=== PATIENT | male | born 1955 | race Caucasian/White ===

== ENCOUNTER → 2016-05-22 | Outpatient (CLI) | payer BC, OTHER ==
[~2016-05-22] MED LIST: ACID1TAB5 PO; CENTTAB PO; CIPR500T89 PO; DOCU10CA PO; FLAG500T PO; GLUCTAB6 PO; HYDR-3713 PO; LEVA500T PO; LORT5TAB PO; MOME50SP; OMEG100011 PO; OMEP20CA3 PO; TYLE325T5 PO; VITA1TAB7 PO; ZYRT10TA2 PO
[2016-05-22 09:09] LABS: BASO % 0.3 % (0.0-1.0); EOS # 0.2 K/mm3 (0.0-0.50); LARGE UNSTAINED CELL # 0.1 K/mm3 (0.0-0.4); LARGE UNSTAINED CELL % 1.9 % (0.0-4.0); MEAN CORPUSCULAR HEMOGLOBIN 32.3 pg (27.0-33.0); MEAN CORPUSCULAR HGB CONC 34.8 g/dl (32.0-36.5); MEAN CORPUSCULAR VOLUME 92.8 fl (80.0-96.0); MONO # 0.4 K/mm3 (0.0-0.8); MONO % 7.6 % (0.0-5.0); NEUTROPHILS # 3.2 K/mm3 (1.8-7.7); NEUTROPHILS % 55.2 % (36.0-66.0); PLATELET COUNT, AUTOMATED 191 k/mm3 (150-450); RED CELL DISTRIBUTION WIDTH 13.1 % (11.5-14.5); WHITE BLOOD COUNT 5.8 K/mm3 (4.0-10.0)
[2016-05-22 09:46] LABS: ANION GAP 7 MEQ/L (8-16); BLOOD UREA NITROGEN 16 MG/DL (7-18); CALCIUM LEVEL 8.8 MG/DL (8.8-10.2); CARBON DIOXIDE LEVEL 26 MEQ/L (21-32); CHLORIDE LEVEL 107 MEQ/L (98-107); CREATININE FOR GFR 1.04 MG/DL (0.70-1.30); GLOMERULAR FILTRATION RATE > 60.0 (>49); GLUCOSE, FASTING 105 MG/DL (80-110); POTASSIUM SERUM 4.1 MEQ/L (3.5-5.1); SODIUM LEVEL 140 MEQ/L (136-145)
--- NOTE | 2016-05-22 13:43 | ECGEPIP ---
Stationary ECG Study [facility] Test Date: 2016-05-22 Pat Name: CHRISTINA KLEIN Department: Room: - Gender: M Cdl A Driver: RF : 1955 Requested By: Eb Webster Order Number: [id number] Reading MD: Arslan Payne Measurements Intervals [place] Rate: 61 P: 48 [place]: 187 QRS: -25 QRSD: 105 T: 1 QT: 420 QTc: 426 Interpretive Statements SINUS RHYTHM Leftward axis. No significant change compared with 06/12/2014. Electronically Signed On 05-22-2016 13:43:03 EDT by Arslan Payne
== END ==
LOC: M LAB 08:15
PROVIDERS: ATTEND Podiatrist
DX: Z01.818 Encounter for other preprocedural examination (principal); G57.61 Lesion of plantar nerve, right lower limb

== ENCOUNTER → 2016-06-14 | Day surgery (SDC) | payer BC, OTHER ==
[~2016-06-14] VITALS: Ht 177.8 cm; Wt 96.2 kg
[~2016-06-14] MED LIST changes: +BACITRACIN PWD 50,000 UNITS VIAL As Ordered ONE; +BUPIVACAINE HCL 0.5% 30 ML VIAL As Ordered ONE; +LIDOCAINE 2% MDV 20 ML VIAL As Ordered ONE; +LR 1,000 ML IV SCH; +MIDAZOLAM INJ 2 MG/2 ML VIAL (J2250) As Ordered ONE; +NEOSPORIN GU IRRIG 20 ML VIAL As Ordered ONE; +ONDANSETRON 4MG/2ML VIAL (J2405) As Ordered ONE; +PROPOFOL 500 MG/50 ML VIAL As Ordered ONE; +VANCOMYCIN HCL 1,000 MG, VIAL MATE ADAPTER 1 EACH in D5W 250 ML IV ONE; +dexameTHASONE 4 MG/ML 1ML VIAL (J1100) As Ordered ONE; +fentaNYL 100 MCG/2 ML INJECTION (J3010) As Ordered ONE
[2016-06-14 09:40] VITALS: BP 117/67
--- NOTE | 2016-06-14 10:56 | RO ---
DATE OF PROCEDURE: 06/14/2016 PREPROCEDURE DIAGNOSIS: Neuroma third intermetatarsal space. POSTPROCEDURE DIAGNOSIS: Neuroma third intermetatarsal space. PROCEDURE: Excision of neuroma third intermetatarsal space right foot. SURGEON: Dr. Eb Webster DPM CLAMP OPERATOR: None. ANESTHESIA: Local MAC. IRRIGATION: Dilute bacitracin, neomycin and polymyxin B solution. HEMOSTASIS: Ankle pneumatic tourniquet at 200 mmHg for 12 minutes. DESCRIPTION OF OPERATION: On 06/14/2016, this 60-year-old white male was taken from his hospital room to the operating room and placed on the operating room table in the supine position. Following the induction of IV sedation and local and regional anesthesia, the right lower extremity was prepped and draped in the usual aseptic manner. Attention was directed to the patient's right foot. The ankle pneumatic tourniquet was rapidly inflated and the following procedure was performed: EXCISION OF NEUROMA THIRD INTERMETATARSAL SPACE RIGHT FOOT: Attention was directed to the third intermetatarsal space where an incision was made measuring approximately 4 cm ending in the third interdigital sulcus. Incision was deepened through the subcutaneous tissues and all coursing venous tributaries were identified, underscored, clamped, cut, ligated and electrocoagulated as necessary. Dissection was carried down to the level of the deep transverse intermetatarsal ligament which was transected. A large neuroma was seen in the third intermetatarsal space. It was traced into the common digital branches and transected on the third and fourth toes, then it was traced in a proximal direction to the distal one-third of the shaft of the third metatarsal transected at the level of the interdigital muscles. This was extirpated from the wound. The wound was flushed with copious amounts of dilute bacitracin, neomycin and polymyxin B solution. Subcutaneous tissues were coapted and maintained with #4-0 Monocryl in a simple interrupted type fashion. Skin incisions were coapted and maintained utilizing #5-0 Monocryl in a continuous subcuticular fashion. This was additionally reinforced with Steri-Strips. Attention was directed toward bandaging where a sterile compression bandage was applied consisting of Adaptic, 4x4, 4x4 splint, Kaitlin, Kerlix and Coban. The ankle pneumatic tourniquet was then rapidly deflated and instantaneous capillary filling time was noted to digits of one through five of the patient's right foot. The patient having apparently tolerated the surgical procedure well was taken from the operating room (OR) to the recovery room with vital signs stable and the patient afebrile for further monitoring by the anesthesia department. All surgical specimens removed during the operative procedure were sent to pathology for gross and microscopic examination. Postoperative instructions given upon discharge.
== END ==
LOC: M SDC 05:54
PROVIDERS: ATTEND Podiatrist
DX: G57.61 Lesion of plantar nerve, right lower limb (principal); M79.671 Pain in right foot; K21.9 Gastro-esophageal reflux disease without esophagitis; R06.02 Shortness of breath; M26.69 Other specified disorders of temporomandibular joint; R06.83 Snoring; Z88.0 Allergy status to penicillin; Z79.899 Other long term (current) drug therapy
CPT/HCPCS: 28080; 88304; J1100; J2250; J2405; J3010; J3370

== ENCOUNTER → 2018-06-19 | Outpatient (REF) | payer OTHER ==
[~2018-06-19] MED LIST changes: -BACITRACIN PWD 50,000 UNITS VIAL As Ordered ONE; -BUPIVACAINE HCL 0.5% 30 ML VIAL As Ordered ONE; +CIPR-249 PO; -CIPR500T89 PO; +LEVA1TAB2 PO; -LEVA500T PO; -LIDOCAINE 2% MDV 20 ML VIAL As Ordered ONE; -LR 1,000 ML IV SCH; -MIDAZOLAM INJ 2 MG/2 ML VIAL (J2250) As Ordered ONE; -NEOSPORIN GU IRRIG 20 ML VIAL As Ordered ONE; -ONDANSETRON 4MG/2ML VIAL (J2405) As Ordered ONE; -PROPOFOL 500 MG/50 ML VIAL As Ordered ONE; -VANCOMYCIN HCL 1,000 MG, VIAL MATE ADAPTER 1 EACH in D5W 250 ML IV ONE; +ZYRT10CA5 PO; -ZYRT10TA2 PO; -dexameTHASONE 4 MG/ML 1ML VIAL (J1100) As Ordered ONE; -fentaNYL 100 MCG/2 ML INJECTION (J3010) As Ordered ONE
== END ==
LOC: M LAB REF 12:13
PROVIDERS: ATTEND Physician Assistant
DX: R19.4 Change in bowel habit (principal)

== ENCOUNTER → 2018-11-04 | Outpatient (CLI) | payer BC, OTHER ==
[~2018-11-04] MED LIST changes: +CETI10TA8 PO; +ERYT1OIN26 OS; +MULTCAP PO; +OMEP1CAP73 PO; -OMEP20CA3 PO
--- NOTE | 2018-11-04 20:00 | REP ---
Lumbar spine five views: Comparison is N abdomen and pelvis CT dated 06/13/2014. Vertebral body heights, interspacing alignment are normal and unchanged. There is a large bridging osteophyte along the anterolateral margin of the L1-L2. This is unchanged from the comparison study and may represent degenerative disc disease at this level. There is no spondylolysis or spondylolisthesis. 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 The sacroiliac articulations are unremarkable. Large bridging osteophyte along the anterolateral margin of L1-2 on the right, unchanged from the comparison study. Otherwise, negative lumbar spine. Electronically Signed by Fili Amaral MD 11/04/2018 07:52 P
== END ==
LOC: M RAD 09:44
PROVIDERS: ATTEND Family Medicine
DX: M51.37 Other intervertebral disc degeneration, lumbosacral region (principal); M25.78 Osteophyte, vertebrae

== ENCOUNTER 2018-11-12 11:03 | Day surgery (SDC) | payer BC, OTHER ==
[~2018-11-12] VITALS: Ht 177.8 cm; Wt 88.0 kg
[~2018-11-12 11:03] MED LIST changes: -ERYT1OIN26 OS; +LIDOCAINE 2% INJ 100 MG/5 ML SDV (FOR ANES.) As Ordered ONE; -OMEP1CAP73 PO; +OMEP20CA4 PO; +PROPOFOL 200 MG/20 ML VIAL As Ordered ONE; +fentaNYL 100 MCG/2 ML INJECTION (J3010) As Ordered ONE
[2018-11-12] MEDS: NS 1,000 ML IV ONE (11:30)
[2018-11-12] MEDS ORDERED: PROPOFOL 200 MG/20 ML VIAL As Ordered ONE (12:24)
--- NOTE | 2018-11-12 13:05 | ROOR ---
Patient Name: Vishnu Berry Procedure Date: 11/12/2018 11:53 AM Date of : 1955 Age: 63 Room: [facility] Gender: Male Note Status: Finalized Procedure: Upper GI endoscopy Indications: Suspected gastro-esophageal reflux disease Providers: Juanito Sinclair MD Referring MD: RACHELLE Medina Requesting Provider: Medicines: Monitored Anesthesia Care Complications: No immediate complications. Procedure: Pre-Anesthesia Assessment: - Prior to the procedure, a History and Physical was performed, and patient medications and allergies were reviewed. The patient is competent. The risks and benefits of the procedure and the sedation options and risks were discussed with the patient. All questions were answered and informed consent was obtained. Patient identification and proposed procedure were verified by the physician, the nurse and the anesthesiologist in the procedure room. Mental Status Examination: alert and oriented. Airway Examination: normal oropharyngeal airway and neck mobility. Respiratory Examination: clear to auscultation. CV Examination: normal. Prophylactic Antibiotics: The patient does not require prophylactic antibiotics. Prior Anticoagulants: The patient has taken no previous anticoagulant or antiplatelet agents. ASA Grade Assessment: II - A patient with mild systemic disease. After reviewing the risks and benefits, the patient was deemed in satisfactory condition to undergo the procedure. The anesthesia plan was to use monitored anesthesia care (MAC). Immediately prior to administration of medications, the patient was re-assessed for adequacy to receive sedatives. The heart rate, respiratory rate, oxygen saturations, blood pressure, adequacy of pulmonary ventilation, and response to care were monitored throughout the procedure. The physical status of the patient was re-assessed after the procedure. The Endoscope was introduced through the mouth, and advanced to the second part of duodenum. The upper GI endoscopy was accomplished without difficulty. The patient tolerated the procedure well. Findings: LA Grade A (one or more mucosal breaks less than 5 mm, not extending between tops of 2 mucosal folds) esophagitis with no bleeding was found in the distal esophagus. Biopsies were taken with a cold forceps for histology. Verification of patient identification for the specimen was done by the physician and nurse using the patient's name, date and medical record number. Estimated blood loss was minimal. Multiple 10 to 20 mm sessile fundic gland polyps with no bleeding and no stigmata of recent bleeding were found in the gastric fundus, in the gastric body and in the gastric antrum. The polyp was removed with a cold snare. (few large polyps removed completely) using a Huerta net. Two hemostatic clips were successfully placed. Scattered mild inflammation characterized by erythema and granularity was found in the gastric antrum. Biopsies were taken with a cold forceps for Helicobacter pylori testing. The duodenal bulb and second portion of the duodenum were normal. Impression: - LA Grade A reflux esophagitis. Rule out Robles's esophagus. Biopsied. - Multiple fundic gland polyps. Clips were placed. - Gastritis. Biopsied. - Normal duodenal bulb and second portion of the duodenum. Recommendation: - Patient has a contact number available for emergencies. The signs and symptoms of potential delayed complications were discussed with the patient. Return to normal activities tomorrow. Written discharge instructions were provided to the patient. - High fiber diet. - Continue present medications. - Await pathology results. - Follow an antireflux regimen. - Telephone GI clinic for pathology results in 2 weeks. - Repeat upper endoscopy in 1 year for surveillance based on pathology results. - Return to GI clinic in [facility] (address [address], [address], [place] [address]) in 4 -- 6 weeks. Please call GI clinic @ [phone] for apppointment date and time. - Return to primary care physician. Juanito Sinclair MD Juanito Sinclair MD 11/12/2018 1:05:23 PM Electronically signed by Juanito Sinclair MD Number of Addenda: 0 Note Initiated On: 11/12/2018 11:53 AM Estimated Blood Loss: Estimated blood loss was minimal.
[2018-11-12 13:15] VITALS: BP 103/67
--- NOTE | 2018-11-12 13:32 | ROOR ---
Patient Name: Vishnu Berry Procedure Date: 11/12/2018 11:54 AM Date of : 1955 Age: 63 Room: [facility] Gender: Male Note Status: Finalized Procedure: Colonoscopy Indications: Chronic diarrhea Providers: Juanito Sinclair MD Referring MD: RACHELLE Medina Requesting Provider: Medicines: Monitored Anesthesia Care Complications: No immediate complications. Procedure: Pre-Anesthesia Assessment: - Prior to the procedure, a History and Physical was performed, and patient medications and allergies were reviewed. The patient is competent. The risks and benefits of the procedure and the sedation options and risks were discussed with the patient. All questions were answered and informed consent was obtained. Patient identification and proposed procedure were verified by the physician, the nurse and the anesthesiologist in the procedure room. Mental Status Examination: alert and oriented. Airway Examination: normal oropharyngeal airway and neck mobility. Respiratory Examination: clear to auscultation. CV Examination: normal. Prophylactic Antibiotics: The patient does not require prophylactic antibiotics. Prior Anticoagulants: The patient has taken no previous anticoagulant or antiplatelet agents. ASA Grade Assessment: II - A patient with mild systemic disease. After reviewing the risks and benefits, the patient was deemed in satisfactory condition to undergo the procedure. The anesthesia plan was to use monitored anesthesia care (MAC). Immediately prior to administration of medications, the patient was re-assessed for adequacy to receive sedatives. The heart rate, respiratory rate, oxygen saturations, blood pressure, adequacy of pulmonary ventilation, and response to care were monitored throughout the procedure. The physical status of the patient was re-assessed after the procedure. The Colonoscope was introduced through the anus and advanced to the terminal ileum, with identification of the appendiceal orifice and IC valve. The colonoscopy was performed without difficulty. The patient tolerated the procedure well. The quality of the bowel preparation was good. The terminal ileum, ileocecal valve, appendiceal orifice, and rectum were photographed. Scope insertion time was 3 minutes. Scope withdrawal time was 9 minutes. The total duration of the procedure was 12 minutes. Findings: The perianal and digital rectal examinations were normal. The terminal ileum appeared normal. A 10 mm polyp was found in the cecum. The polyp was sessile. The polyp was removed with a cold snare. Resection and retrieval were complete. For hemostasis, one hemostatic clip was successfully placed. There was no bleeding at the end of the procedure. Verification of patient identification for the specimen was done by the physician and nurse using the patient's name, date and medical record number. Estimated blood loss was minimal. A 5 mm polyp was found in the transverse colon. The polyp was sessile. The polyp was removed with a cold snare. Resection and retrieval were complete. A 3 mm polyp was found in the rectum. The polyp was sessile. The polyp was removed with a cold biopsy forceps. Resection and retrieval were complete. Multiple small and large-mouthed diverticula were found from sigmoid to transverse colon. There was no evidence of diverticular bleeding. Normal mucosa was found in the entire colon. Biopsies for histology were taken with a cold forceps from the right colon, left colon and rectosigmoid colon for evaluation of microscopic colitis. Impression: - The examined portion of the ileum was normal. - One 10 mm polyp in the cecum, removed with a cold snare. Resected and retrieved. Clip was placed. - One 5 mm polyp in the transverse colon, removed with a cold snare. Resected and retrieved. - One 3 mm polyp in the rectum, removed with a cold biopsy forceps. Resected and retrieved. - Moderate diverticulosis from sigmoid to transverse colon. There was no evidence of diverticular bleeding. - Normal mucosa in the entire examined colon. Biopsied. Recommendation: - Patient has a contact number available for emergencies. The signs and symptoms of potential delayed complications were discussed with the patient. Return to normal activities tomorrow. Written discharge instructions were provided to the patient. - High fiber diet. - Continue present medications. - Await pathology results. - Repeat colonoscopy in 3 - 5 years for surveillance based on pathology results. - Telephone GI clinic for pathology results in 2 weeks. - Return to GI clinic in [facility] (address [address], [address], [place] [address]) in 4 -- 6 weeks. Please call GI clinic @ [phone] for apppointment date and time. - Return to primary care physician. Juanito Sinclair MD Juanito Sinclair MD 11/12/2018 1:31:59 PM Electronically signed by Juanito Sinclair MD Number of Addenda: 0 Note Initiated On: 11/12/2018 11:54 AM Estimated Blood Loss: Estimated blood loss was minimal.
== END 2018-11-12 13:31 | disposition home or self-care (01) ==
LOC: M OPP 11:03
PROVIDERS: ATTEND Internal Medicine Gastroenterology
DX: D12.0 Benign neoplasm of cecum (principal); D12.3 Benign neoplasm of transverse colon; K62.1 Rectal polyp; K57.30 Diverticulosis of large intestine without perforation or abscess without bleeding; K52.9 Noninfective gastroenteritis and colitis, unspecified; Z88.0 Allergy status to penicillin; Z80.0 Family history of malignant neoplasm of digestive organs
CPT/HCPCS: 43239; 43251; 45380; 45385; 88305; J3010

== ENCOUNTER 2018-11-24 20:53 | Emergency (ER) | payer BC, OTHER ==
[~2018-11-24] VITALS: Ht 177.8 cm; Wt 93.3 kg
[~2018-11-24 20:53] MED LIST changes: -LIDOCAINE 2% INJ 100 MG/5 ML SDV (FOR ANES.) As Ordered ONE; -PROPOFOL 200 MG/20 ML VIAL As Ordered ONE; -fentaNYL 100 MCG/2 ML INJECTION (J3010) As Ordered ONE
[2018-11-24] MEDS ORDERED: FLUORESCEIN OPHTH 1 MG STRIP OS ONE (22:00)
[2018-11-24] MEDS ORDERED: TETRACAINE 0.5% OPHTH SOLN 4ML OS ONE (22:00)
[2018-11-24] MEDS ORDERED: ERYT1OIN26 OS (22:21)
[2018-11-24] MEDS ORDERED: ERYTHROMYCIN OPHTH OINT OS ONE (22:30)
[2018-11-24 22:37] VITALS: BP 135/69
== END 2018-11-24 22:38 | disposition home or self-care (01) ==
LOC: M ED 20:53
DX: S05.8X2A Other injuries of left eye and orbit, initial encounter (principal); W22.8XXA Striking against or struck by other objects, initial encounter; Y92.098 Other place in other non-institutional residence as the place of occurrence of the external cause; K21.9 Gastro-esophageal reflux disease without esophagitis; E78.5 Hyperlipidemia, unspecified; Z88.0 Allergy status to penicillin

== ENCOUNTER → 2019-01-21 | Outpatient (REF) | payer OTHER ==
[~2019-01-21] MED LIST changes: +ERYT1OIN26 OS
[2019-01-21 15:19] LABS: HEMATOCRIT 48.7 % (42.0-52.0); HEMOGLOBIN 15.9 g/dl (13.5-17.5); MEAN CORPUSCULAR HEMOGLOBIN 31.8 pg (27.0-33.0); MEAN CORPUSCULAR HGB CONC 32.6 g/dl (32.0-36.5); MEAN CORPUSCULAR VOLUME 97.4 fl (80.0-96.0); PLATELET COUNT, AUTOMATED 218 10^3/uL (150-450); WHITE BLOOD COUNT 5.6 10^3/uL (4.0-10.0)
[2019-01-21 15:36] LABS: ALBUMIN 3.9 GM/DL (3.2-5.2); ALT/SGPT 41 U/L (12-78); BILIRUBIN,TOTAL 0.7 MG/DL (0.2-1.0); BLOOD UREA NITROGEN 14 MG/DL (7-18); CALCIUM LEVEL 8.8 MG/DL (8.8-10.2); CARBON DIOXIDE LEVEL 29 MEQ/L (21-32); CHLORIDE LEVEL 108 MEQ/L (98-107); CHOLESTEROL LEVEL 193 MG/DL (<200); CHOLESTEROL RISK RATIO 3.271 (<5); CREATININE FOR GFR 0.97 MG/DL (0.70-1.30); FREE T4 0.84 NG/DL (0.76-1.46); GLOMERULAR FILTRATION RATE > 60.0 (>49); GLUCOSE, FASTING 97 MG/DL (70-100); HDL CHOLESTEROL 59 MG/DL (>40); LDL CHOLESTEROL 99 MG/DL (<100); NON-HDL-C 134 MG/DL; POTASSIUM SERUM 4.9 MEQ/L (3.5-5.1); SODIUM LEVEL 141 MEQ/L (136-145); TOTAL PROTEIN 6.8 GM/DL (6.4-8.2); TRIGLYCERIDES LEVEL 175 MG/DL (<150)
== END ==
LOC: M SFHCADAM 08:41
PROVIDERS: ATTEND Physician Assistant
DX: K21.9 Gastro-esophageal reflux disease without esophagitis (principal); R19.4 Change in bowel habit; E78.5 Hyperlipidemia, unspecified

== ENCOUNTER → 2019-07-23 | Outpatient (REF) | payer OTHER ==
[~2019-07-23] MED LIST changes: -ERYT1OIN26 OS; +ERYT5OIN25 OS; +OMEP1CAP73 PO; -OMEP20CA4 PO
[2019-07-23 13:56] LABS: ALBUMIN 3.9 GM/DL (3.2-5.2); ALT/SGPT 48 U/L (12-78); BILIRUBIN,TOTAL 1.1 MG/DL (0.2-1.0); BLOOD UREA NITROGEN 13 MG/DL (7-18); CALCIUM LEVEL 8.7 MG/DL (8.8-10.2); CARBON DIOXIDE LEVEL 26 MEQ/L (21-32); CHLORIDE LEVEL 108 MEQ/L (98-107); GLOMERULAR FILTRATION RATE > 60.0 (>49); GLUCOSE, FASTING 94 MG/DL (70-100); POTASSIUM SERUM 4.8 MEQ/L (3.5-5.1); SODIUM LEVEL 140 MEQ/L (136-145); TOTAL PROTEIN 6.7 GM/DL (6.4-8.2)
== END ==
LOC: M SFHCADAM 08:53
PROVIDERS: ATTEND Physician Assistant
DX: K22.70 Barrett's esophagus without dysplasia (principal); E78.5 Hyperlipidemia, unspecified

== ENCOUNTER 2019-12-28 09:04 | Emergency (ER) | payer MEDICARE, BC, OTHER ==
[~2019-12-28] VITALS: Ht 177.8 cm; Wt 88.5 kg
--- NOTE | 2019-12-28 10:26 | REP ---
INDICATION: right occipital headache. COMPARISON: None. TECHNIQUE: Noncontrast CT brain with coronal soft tissue reconstructions. FINDINGS: Lateral ventricles are midline symmetric and without dilatation or displacement. There is a cavum septum pellucidum present as anatomic variation. Third and 4th ventricles are unremarkable. I do not see significant atrophy with age-appropriate appearance of the sulci. The basal ganglia are generally symmetric and had a couple of calcifications scattered within each side which is a benign finding in this age group. There is no vascular territory infarct, intracranial hemorrhage, mass or mass effect. Estrella-white junction differentiation was well maintained. I see no heterogeneous low attenuation white matter changes. No extra-axial fluid collections are present. Cerebellum shows some minimal atrophy but no mass. No posterior fossa hemorrhage. Basal cisterns are intact. Mastoids and visualized sinuses were clear. Skull base and calvarium show no fracture or focal lesion. IMPRESSION: Negative CT brain. No intracranial hemorrhage, infarct, mass or edema. There is no fracture of the skull base or calvarium. Visualized sinuses clear. <Electronically signed by Daquan Cooper > 12/28/19 1025
[2019-12-28 10:31] LABS: BASO % 0.4 % (0.0-1.0); EOS # 0.1 10^3/uL (0.0-0.5); EOS % 1.3 % (0.0-3.0); HEMATOCRIT 45.7 % (42.0-52.0); HEMOGLOBIN 15.4 g/dl (13.5-17.5); LYMPH # 1.5 10^3/uL (1.5-5.0); LYMPH % 27.9 % (24.0-44.0); MEAN CORPUSCULAR HEMOGLOBIN 31.3 pg (27.0-33.0); MEAN CORPUSCULAR HGB CONC 33.7 g/dl (32.0-36.5); MEAN CORPUSCULAR VOLUME 92.9 fl (80.0-96.0); MONO # 0.4 10^3/uL (0.0-0.8); MONO % 7.2 % (0.0-5.0); NEUTROPHILS # 3.3 10^3/uL (1.5-8.5); NEUTROPHILS % 62.6 % (36.0-66.0); PLATELET COUNT, AUTOMATED 185 10^3/uL (150-450); RED BLOOD COUNT 4.92 10^6/uL (4.30-6.10); WHITE BLOOD COUNT 5.3 10^3/uL (4.0-10.0)
[2019-12-28] MEDS ORDERED: META0.52 PO (10:37)
[2019-12-28] MEDS ORDERED: OMEP-218 PO (10:37)
[2019-12-28] MEDS ORDERED: ECOT81TA5 PO (10:37)
[2019-12-28] MEDS ORDERED: ACET-683 PO (10:37)
[2019-12-28 10:49] LABS: ERYTHROCYTE SEDIMENTATION RATE 3 mm/hr (0-20)
[2019-12-28 10:50] LABS: BLOOD UREA NITROGEN 13 MG/DL (7-18); CALCIUM LEVEL 9.1 MG/DL (8.8-10.2); CARBON DIOXIDE LEVEL 27 MEQ/L (21-32); CHLORIDE LEVEL 108 MEQ/L (98-107); CREATININE FOR GFR 0.86 MG/DL (0.70-1.30); GLOMERULAR FILTRATION RATE > 60.0 (>49); GLUCOSE, FASTING 132 MG/DL (70-100); SODIUM LEVEL 139 MEQ/L (136-145)
[2019-12-28] MEDS ORDERED: METH1TAB40 PO (11:56)
[2019-12-28] MEDS ORDERED: KETO10TAB PO (11:56)
[2019-12-28] MEDS ORDERED: KETOROLAC TROMETHAMINE 10 MG TAB PO ONE (12:00)
[2019-12-28 12:04] VITALS: BP 124/69
== END 2019-12-28 12:07 | disposition home or self-care (01) ==
LOC: M ED 09:04
DX: G44.209 Tension-type headache, unspecified, not intractable (principal); K21.9 Gastro-esophageal reflux disease without esophagitis; Z88.0 Allergy status to penicillin; Z79.899 Other long term (current) drug therapy

== ENCOUNTER → 2020-03-13 | Outpatient (CLI) | payer MEDICARE, BC, OTHER ==
[~2020-03-13] MED LIST changes: +ACET-683 PO; +ASPI81CH33 PO; +ECOT81TA5 PO; +GLUCCAP4 PO; +GNP1000T11 PO; +HM A10TA PO; +KETO10TAB PO; +META0.52 PO; +METH-1164 PO; +MULT-40 PO; +OMEP-218 PO; +TGTCAP PO; +ZINC1TAB2 PO
== END ==
LOC: M LABSMTC 08:00
PROVIDERS: ATTEND Anesthesiology
DX: Z01.812 Encounter for preprocedural laboratory examination (principal); Z20.822 Contact with and (suspected) exposure to COVID-19

== ENCOUNTER → 2020-04-10 | Outpatient (CLI) | payer MEDICARE, BC, OTHER | LOC: M LABSMTC 09:14 | PROVIDERS: ATTEND Anesthesiology | DX: Z01.812 Encounter for preprocedural laboratory examination (principal); Z20.822 Contact with and (suspected) exposure to COVID-19 ==

== ENCOUNTER 2020-04-15 10:56 | Day surgery (SDC) | payer MEDICARE, BC, OTHER ==
[~2020-04-15] VITALS: Ht 177.8 cm; Wt 92.0 kg
[~2020-04-15 10:56] MED LIST changes: +LIDOCAINE 2% 100MG/5ML SDV (FOR ANES.) As Ordered ONE; +NS 1,000 ML IV ONE; +fentaNYL 100 MCG/2 ML INJECTION (J3010) As Ordered ONE; +propofoL 200 MG/20 ML VIAL As Ordered ONE
--- OUTSIDE RECORDS SUMMARY | 2020-04-15 11:00 | CCD ---
Author Author [facility] Organization [facility] Address Unknown Phone Unavailable Support Name Relationship Address Phone RE Next Of Kin Unknown Unavailable [employer] [facility] [address] [place] [address] Unavailable ALEXANDRA KLEIN Next Of Kin - -, - - [employer] Next Of Kin - -, - - - NONE, PT PER Next Of Kin - -, - - - [place] Next Of Kin [address] [place] [address] SHAD KLEIN Next Of [address] [place] [address] SHAD KLE[place] [address] [address] [place] [address] Unavailable Re-disclosure Warning The records that you are about to access may contain information from federally-assisted alcohol or drug abuse programs. If such information is present, then the following federally mandated warning applies: This information has been disclosed to you from records protected by federal confidentiality rules (42 CFR part 2). The federal rules prohibit you from making any further disclosure of this information unless further disclosure is expressly permitted by the written consent of the person to whom it pertains or as otherwise permitted by 42 CFR part 2. A general authorization for the release of medical or other information is NOT sufficient for this purpose. The Federal rules restrict any use of the information to criminally investigate or prosecute any alcohol or drug abuse patient.The records that you are about to access may contain highly sensitive health information, the redisclosure of which is protected by Article 27-F of the [facility] Public Health law. If you continue you may have access to information: Regarding HIV / AIDS; Provided by facilities licensed or operated by the [facility] Office of Mental Health; or Provided by the [facility] Office for People With Developmental Disabilities. If such information is present, then the following [facility] mandated warning applies: This information has been disclosed to you from confidential records which are protected by state law. State law prohibits you from making any further disclosure of this information without the specific written consent of the person to whom it pertains, or as otherwise permitted by law. Any unauthorized further disclosure in violation of state law may result in a fine or fdc sentence or both. A general authorization for the release of medical or other information is NOT sufficient authorization for further disc losure. Allergies and Adverse Reactions Type Description Substance Reaction Status Data Source(s ) Drug allergy Penicillin (For Allergies Use Only) Drug allergy Nause a/Vomiting Active eCW1 ([facility]) Family History Family Member Name Family Member Gender Family Member Status Date o f Status Description Data Source(s) Unknown Unknown Problem MEDENT ([facility], [facility]) Unknown Female Encounters Encounter Providers Location Date Indications Data Source(s ) Outpatient [address] [place] [id number] 01/02/2020 12:00:00 AM EST eCW1 ([facility]) [address] [address] 07/30/2019 12:00:00 AM EDT eCW1 ([facility]) [address] [address] 07/01/2019 12:00:00 AM EDT eCW1 ([facility]) Medications Medication Brand Name Start Date Product Form Dose Route Admi nistrative Instructions Pharmacy Instructions Status Indications Reaction Description Data Source(s) 500 mg 12/28/2019 12:00:00 AM EST tablet 10 TAKE ONE TABLET BY MOUTH AT BEDTIME TAKE ONE TABLET BY MOUTH AT BEDTIME SOLD: 12/28/2019 [facility] 10 mg 12/28/2019 12:00:00 AM EST tablet 20 TAKE ONE TABLET BY MOUTH EVERY 6 HOURS NEEDED FOR PAIN TAKE ONE TABLET BY MOUTH EVERY 6 HOURS A S NEEDED FOR PAIN SOLD: 12/28/2019 [facility] 20 mg 08/13/2019 12:00:00 AM EDT capsule,delayed release (DR/EC) 90 TAKE ONE CAPSULE BY MOUTH EVERY MORNING TAKE ONE CAPSULE BY MOUTH EVERY MORNING SOLD: 11/18/2019 [facility] 20 mg 08/13/2019 12:00:00 AM EDT capsule,delayed release (DR/EC) 90 TAKE ONE CAPSULE BY MOUTH EVERY MORNING TAKE ONE CAPSULE BY MOUTH EVERY MORNING SOLD: 08/20/2019 [facility] 20 mg 08/13/2019 12:00:00 AM EDT capsule,delayed release (DR/EC) 90 TAKE ONE CAPSULE BY MOUTH EVERY MORNING TAKE ONE CAPSULE BY MOUTH EVERY MORNING SOLD: 02/27/2020 [facility] doxycycline hyclate 100 MG Oral Tablet Doxycycline Hyc late 100 MG Doxycycline Hyclate 100 MG 07/01/2019 12:00:00 AM EDT active 2 tablets eCW1 ([facility]) 100 mg 07/01/2019 12:00:00 AM EDT tablet 2 TAKE TWO TABLETS BY MOUTH EVERY DAY FOR 1 DAY TAKE TWO TABLETS BY MOUTH EVERY DAY FOR 1 DAY SOLD: 07/01/2019 [employer] doxycycline hyclate 100 MG Oral Tablet Doxycycline Hyc late 100 MG Doxycycline Hyclate 100 MG 07/01/2019 12:00:00 AM EDT 2.0 {tablets} suspended Doxycycline Hyclate 100 MG eCW1 ([facility]) 300 mg 05/20/2019 12:00:00 AM EDT capsule 28 TAKE 1 CAPSULE BY MOUTH EVERY 6 HOURS TAKE 1 CAPSULE BY MOUTH EVERY 6 HOURS SOLD: 05/20/2019 [facility] 5-325 mg 03/04/2019 12:00:00 AM EST tablet 16 TAKE ONE TABLET BY MOUTH EVERY 4 HOURS NEEDED FOR PAIN MAXIMUM DAILY DOSE = 6 TAKE ONE TABLET BY MOUTH EVERY 4 HOURS NEEDED FOR PAIN MAXIMUM DAILY DOSE = 6 SOLD: 03/04/2019 [facility] 300 mg 03/04/2019 12:00:00 AM EST capsule 28 TAKE ONE CAPSULE BY MOUTH EVERY 6 HOURS TAKE ONE CAPSULE BY MOUTH EVERY 6 HOURS SOLD: 03/04/2019 [facility] 20 mg 05/20/2018 12:00:00 AM EDT capsule,delayed release (DR/EC) 90 TAKE 1 CAPSULE BY MOUTH IN THE MORNING TAKE 1 CAPSULE BY MOUTH IN THE MORNING SOLD: 02/24/2019 [facility] 20 mg 05/20/2018 12:00:00 AM EDT capsule,delayed release (DR/EC) 90 TAKE 1 CAPSULE BY MOUTH IN THE MORNING TAKE 1 CAPSULE BY MOUTH IN THE MORNING SOLD: 05/14/2019 [facility] Insurance Providers Payer name Policy type / Coverage type Policy ID Covered green party ID Covered green party's relationship to isidro Policy Isidro Plan Information MEDICARE [id number] SP [id number] BCBS [place]IRE [place] DIV [id number] SP [id number] [facility] [id number] SP [id number] [facility] [id number] SP [id number] MEDICARE C [id number] S [id number] [facility] O [id number] S [id number] BCBS E[employer]IRE [place] DIV [id number] SP [id number] [facility] [id number] SP [id number] BCBS E[employer]IRE FR[employer] DIV [id number] SP [id number] [facility] [id number] SP [id number] ANSI-Commercial [id number] ANSI-Commercial [id number] ANSI-Commercial [id number] [employer] [place] Commercial [id number] Self [id number] BCBS EMPIRE FREDY DIV [id number] SP [id number] [facility] [id number] SP [id number] [facility] [employer] Self BCBS EMPIRE FREDY DIV [id number] SP [id number] [facility] Health Maintenance Organization (HMO) Self EMPIRE PLAN [facility] [id number] Self [id number] Problems, Conditions, and Diagnoses Code Display Name Description Problem Type Effective Dates Data Source(s) G44.209 [id number] Tension-type headach e, not intractable, unspecified chronicity pattern Problem 01/02/2020 12:00:00 AM EST eCW1 ([facility]) Results ID Date Data Source [id number] 04/10/2020 09:00:00 AM EST [facility] Name Value Range Interpretation Code Description Data Celeste rce(s) Supporting Document(s) SARS coronavirus 2 RNA Not Detected [facility] [place] This lab was ordered by [facility] and reported by [facility]. ID Date Data Source [id number] 03/13/2020 11:00:00 AM EST [facility] Name Value Range Interpretation Code Description Data Celeste rce(s) Supporting Document(s) SARS coronavirus 2 RNA Not Detected [facility] [place] This lab was ordered by [facility] and reported by [facility]. Procedure Social History Code Duration Value Status Description Data Source(s ) Smoking 01/02/2020 12:00:00 AM EST Never Smoker completed Never S moker eCW1 ([facility]) Vital Signs ID Date Data Source UNK Name Value Range Interpretation Code Description Data Source(s) Diastolic blood pressure 80 mm[Hg] 80 mm[Hg] eCW1 ([facility]) Systolic blood pressure 120 mm[Hg] 120 mm[Hg] e CW1 ([facility]) Body temperature 97.3 [degF] 97.3 [degF] eCW1 ( [facility]) Respiratory rate 18 /min 18 /min eCW1 ([facility]) Heart rate 77 /min 77 /min eCW1 ([facility]) Body mass index (BMI) [Ratio] 27.58 kg/m2 27.58 kg/m2 eCW1 ([facility]) Body height [in_i] eCW1 ([facility]) Body weight 197.8 [lb_av] 197.8 [lb_av] eCW1 ([facility]) Diastolic blood pressure 66 mm[Hg] 66 mm[Hg] eCW1 ([facility]) Systolic blood pressure 122 mm[Hg] 122 mm[Hg] e CW1 ([facility]) Body temperature 96 [degF] 96 [degF] eCW1 ([facility]) Respiratory rate 18 /min 18 /min eCW1 ([facility]) Heart rate 85 /min 85 /min eCW1 ([facility]) Body mass index (BMI) [Ratio] 28.84 kg/m2 28.84 kg/m2 eCW1 ([facility]) Body height [in_us] eCW1 ([facility]) Body weight Measured 206.8 [lb_av] 206.8 [lb_av ] W1 ([facility]) Patient Treatment Plan of Care Planned Activity Planned Date Details Description Data Source (s) doxycycline hyclate 100 MG Oral Tablet 07/01/2019 12:00:00 AM EDT W1 ([facility])
--- NOTE | 2020-04-15 13:23 | ROOR ---
Patient Name: Vishnu Berry Procedure Date: 04/15/2020 12:39 PM Date of : 1955 Age: 64 Room: [facility] Gender: Male Note Status: Finalized Procedure: Upper GI endoscopy Indications: Follow-up of Robles's esophagus Providers: Juanito Sinclair MD Referring MD: RACHELLE Medina Requesting Provider: Medicines: Monitored Anesthesia Care Complications: No immediate complications. Procedure: Pre-Anesthesia Assessment: - Prior to the procedure, a History and Physical was performed, and patient medications and allergies were reviewed. The patient is competent. The risks and benefits of the procedure and the sedation options and risks were discussed with the patient. All questions were answered and informed consent was obtained. Patient identification and proposed procedure were verified by the physician, the nurse and the anesthesiologist in the procedure room. Mental Status Examination: alert and oriented. Airway Examination: normal oropharyngeal airway and neck mobility. Respiratory Examination: clear to auscultation. CV Examination: normal. Prophylactic Antibiotics: The patient does not require prophylactic antibiotics. Prior Anticoagulants: The patient has taken no previous anticoagulant or antiplatelet agents. ASA Grade Assessment: II - A patient with mild systemic disease. After reviewing the risks and benefits, the patient was deemed in satisfactory condition to undergo the procedure. The anesthesia plan was to use monitored anesthesia care (MAC). Immediately prior to administration of medications, the patient was re-assessed for adequacy to receive sedatives. The heart rate, respiratory rate, oxygen saturations, blood pressure, adequacy of pulmonary ventilation, and response to care were monitored throughout the procedure. The physical status of the patient was re-assessed after the procedure. The Endoscope was introduced through the mouth, and advanced to the second part of duodenum. The upper GI endoscopy was accomplished without difficulty. The patient tolerated the procedure well. Findings: Two tongues of salmon-colored mucosa were present from 38 to 40 cm. Hiatal narrowing was identified at 40 cm. Biopsies were taken with a cold forceps for histology. Verification of patient identification for the specimen was done by the physician and nurse using the patient's name, date and medical record number. Estimated blood loss was minimal. A small hiatal hernia was present. Multiple 8 to 15 mm sessile polyps with no bleeding and no stigmata of recent bleeding were found in the gastric fundus and in the gastric body. Biopsies were taken with a cold forceps for histology. An endoclip was found in the gastric body. Removal was accomplished with a snare. The duodenal bulb and second portion of the duodenum were normal. Impression: - Granville-colored mucosa suspicious for short-segment Robles's esophagus. Biopsied. - Small hiatal hernia. - Multiple gastric polyps. Biopsied. - An endoclip was found in the stomach. Removal was successful. - Normal duodenal bulb and second portion of the duodenum. Recommendation: - Patient has a contact number available for emergencies. The signs and symptoms of potential delayed complications were discussed with the patient. Return to normal activities tomorrow. Written discharge instructions were provided to the patient. - High fiber diet. - Continue present medications. - Use a proton pump inhibitor PO daily. - Follow an antireflux regimen. - Await pathology results. - Repeat upper endoscopy in 3 years per protocol and for surveillance based on pathology results. - Telephone GI clinic for pathology results in 2 weeks. - Return to primary care physician. Procedure Code(s): --- Professional --- 17538, Esophagogastroduodenoscopy, flexible, transoral; with removal of foreign body(s) 04070, Esophagogastroduodenoscopy, flexible, transoral; with biopsy, single or multiple Diagnosis Code(s): --- Professional --- K22.70, Robles's esophagus without dysplasia K44.9, Diaphragmatic hernia without obstruction or gangrene K31.7, Polyp of stomach and duodenum T18.2XXA, Foreign body in stomach, initial encounter CPT copyright 2019 [employer]. All rights reserved. The codes documented in this report are preliminary and upon judge clerk review may be revised to meet current compliance requirements. Juanito Sinclair MD Juanito Sinclair MD 04/15/2020 1:22:37 PM Electronically signed by Juanito Sinclair MD Number of Addenda: 0 Note Initiated On: 04/15/2020 12:39 PM Estimated Blood Loss: Estimated blood loss was minimal.
[2020-04-15 13:38] VITALS: BP 124/74
== END 2020-04-15 13:55 | disposition home or self-care (01) ==
LOC: M OPP 10:56
PROVIDERS: ATTEND Internal Medicine Gastroenterology
DX: K22.70 Barrett's esophagus without dysplasia (principal); K44.9 Diaphragmatic hernia without obstruction or gangrene; K31.7 Polyp of stomach and duodenum; T18.2XXA Foreign body in stomach, initial encounter; K31.89 Other diseases of stomach and duodenum; Z79.82 Long term (current) use of aspirin; Z79.899 Other long term (current) drug therapy; Z88.0 Allergy status to penicillin; Z80.0 Family history of malignant neoplasm of digestive organs; Z80.42 Family history of malignant neoplasm of prostate; Z80.52 Family history of malignant neoplasm of bladder
CPT/HCPCS: 43239; 43247; 88305; 88342; J3010

== ENCOUNTER → 2020-08-04 | Outpatient (REF) | payer MEDICARE, OTHER ==
[~2020-08-04] MED LIST changes: +CETI-39 PO; -HM A10TA PO; -LIDOCAINE 2% 100MG/5ML SDV (FOR ANES.) As Ordered ONE; -NS 1,000 ML IV ONE; -fentaNYL 100 MCG/2 ML INJECTION (J3010) As Ordered ONE; -propofoL 200 MG/20 ML VIAL As Ordered ONE
[2020-08-04 11:23] LABS: HEMATOCRIT 48.1 % (42.0-52.0); HEMOGLOBIN 16.1 g/dl (13.5-17.5); MEAN CORPUSCULAR HEMOGLOBIN 31.8 pg (27.0-33.0); MEAN CORPUSCULAR HGB CONC 33.5 g/dl (32.0-36.5); MEAN CORPUSCULAR VOLUME 94.9 fl (80.0-96.0); PLATELET COUNT, AUTOMATED 193 10^3/uL (150-450); RED BLOOD COUNT 5.07 10^6/uL (4.30-6.10); WHITE BLOOD COUNT 5.7 10^3/uL (4.0-10.0)
[2020-08-04 12:03] LABS: ALBUMIN 4.2 GM/DL (3.2-5.2); ALT/SGPT 36 U/L (12-78); BILIRUBIN,TOTAL 0.6 MG/DL (0.2-1.0); BLOOD UREA NITROGEN 19 MG/DL (7-18); CALCIUM LEVEL 9.5 MG/DL (8.8-10.2); CARBON DIOXIDE LEVEL 29 MEQ/L (21-32); CHLORIDE LEVEL 109 MEQ/L (98-107); CHOLESTEROL LEVEL 196 MG/DL (<200); CREATININE FOR GFR 1.04 MG/DL (0.70-1.30); GLOMERULAR FILTRATION RATE > 60.0 (>49); GLUCOSE, FASTING 87 MG/DL (70-100); HDL CHOLESTEROL 56 MG/DL (>40); LDL CHOLESTEROL 103 MG/DL (<100); NON-HDL-C 140 MG/DL; POTASSIUM SERUM 4.6 MEQ/L (3.5-5.1); SODIUM LEVEL 141 MEQ/L (136-145); TOTAL 25(OH) VITAMIN D 27.2 NG/ML (30.0-100.0); TOTAL PROTEIN 6.8 GM/DL (6.4-8.2); TRIGLYCERIDES LEVEL 186 MG/DL (<150); VITAMIN B12 LEVEL 522 PG/ML
== END ==
LOC: M SFHCADAM 08:02
PROVIDERS: ATTEND Physician Assistant
DX: M54.5 Low back pain (principal); K22.70 Barrett's esophagus without dysplasia; E78.5 Hyperlipidemia, unspecified; Z12.5 Encounter for screening for malignant neoplasm of prostate
CPT/HCPCS: 80053; 80061; 82306; 82607; 82746; 85027; G0103

== ENCOUNTER → 2020-08-05 | Outpatient (REF) | payer MEDICARE, OTHER | LOC: M LAB REF 10:06 | PROVIDERS: ATTEND Internal Medicine Gastroenterology | DX: K22.70 Barrett's esophagus without dysplasia (principal); B96.81 Helicobacter pylori [H. pylori] as the cause of diseases classified elsewhere; K31.7 Polyp of stomach and duodenum ==

== ENCOUNTER → 2021-12-21 | Outpatient (REF) | payer MEDICARE, OTHER ==
[~2021-12-21] MED LIST changes: +CETI-25 PO; -CETI-39 PO; -CETI10TA8 PO; -GLUCTAB6 PO; +GLUCTAB7 PO; +GNPTAB36 PO; -MOME50SP; +NASO50SP3; +OMEP-173 PO; -OMEP-218 PO
[2021-12-21 13:11] LABS: HEMATOCRIT 46.6 % (42.0-52.0); HEMOGLOBIN 15.5 g/dl (13.5-17.5); MEAN CORPUSCULAR HEMOGLOBIN 32.5 pg (27.0-33.0); MEAN CORPUSCULAR HGB CONC 33.3 g/dl (32.0-36.5); MEAN CORPUSCULAR VOLUME 97.7 fl (80.0-96.0); PLATELET COUNT, AUTOMATED 204 10^3/uL (150-450); RED BLOOD COUNT 4.77 10^6/uL (4.30-6.10); WHITE BLOOD COUNT 6.8 10^3/uL (4.0-10.0)
[2021-12-21 14:06] LABS: ALBUMIN 3.8 GM/DL (3.2-5.2); ALT/SGPT 38 U/L (12-78); BILIRUBIN,TOTAL 0.6 MG/DL (0.2-1.0); BLOOD UREA NITROGEN 14 MG/DL (7-18); CALCIUM LEVEL 8.8 MG/DL (8.8-10.2); CARBON DIOXIDE LEVEL 26 MEQ/L (21-32); CHLORIDE LEVEL 108 MEQ/L (98-107); CHOLESTEROL LEVEL 195 MG/DL (<200); CHOLESTEROL RISK RATIO 3.545 (<5); CREATININE FOR GFR 0.91 MG/DL (0.70-1.30); GLOMERULAR FILTRATION RATE > 60.0 (>49); GLUCOSE, FASTING 100 MG/DL (70-100); HDL CHOLESTEROL 55 MG/DL (>40); LDL CHOLESTEROL 104 MG/DL (<100); NON-HDL-C 140 MG/DL; POTASSIUM SERUM 4.7 MEQ/L (3.5-5.1); SODIUM LEVEL 140 MEQ/L (136-145); TOTAL PROTEIN 6.6 GM/DL (6.4-8.2); TRIGLYCERIDES LEVEL 180 MG/DL (<150)
[2021-12-21 14:29] LABS: FOLATE 11.1 NG/ML; TOTAL 25(OH) VITAMIN D 25.9 NG/ML (30.0-100.0); VITAMIN B12 LEVEL 340 PG/ML
== END ==
LOC: M SFHCADAM 07:32
PROVIDERS: ATTEND Physician Assistant
DX: K21.9 Gastro-esophageal reflux disease without esophagitis (principal); E78.5 Hyperlipidemia, unspecified; K22.70 Barrett's esophagus without dysplasia; E55.9 Vitamin D deficiency, unspecified; Z12.5 Encounter for screening for malignant neoplasm of prostate
CPT/HCPCS: 80053; 80061; 82306; 82607; 82746; 85027; G0103

== ENCOUNTER → 2022-04-10 | Outpatient (CLI) | payer MEDICARE, OTHER, BC | LOC: M LABSMTC 10:30 | PROVIDERS: ATTEND Anesthesiology | DX: Z01.812 Encounter for preprocedural laboratory examination (principal); Z11.52 Encounter for screening for COVID-19 ==

== ENCOUNTER 2022-04-13 07:20 | Day surgery (SDC) | payer MEDICARE, OTHER, BC ==
[~2022-04-13] VITALS: Ht 177.8 cm; Wt 92.6 kg
[~2022-04-13 07:20] MED LIST changes: +NS 1,000 ML IV ONE
[2022-04-13] MEDS ORDERED: LIDOCAINE 2% 100MG/5ML SDV (FOR ANES.) As Ordered ONE (08:32)
[2022-04-13] MEDS ORDERED: propofoL 200 MG/20 ML VIAL As Ordered ONE ×2 (08:32→09:14)
[2022-04-13 09:55] VITALS: BP 142/77
== END 2022-04-13 10:00 | disposition home or self-care (01) ==
LOC: M OPP 07:20
PROVIDERS: ATTEND Internal Medicine Gastroenterology
DX: Z12.11 Encounter for screening for malignant neoplasm of colon (principal); Z86.010 Personal history of colon polyps; K63.5 Polyp of colon; K64.4 Residual hemorrhoidal skin tags; K64.8 Other hemorrhoids; K57.30 Diverticulosis of large intestine without perforation or abscess without bleeding; Z79.899 Other long term (current) drug therapy; Z88.0 Allergy status to penicillin; Z90.49 Acquired absence of other specified parts of digestive tract; Z80.42 Family history of malignant neoplasm of prostate; Z80.52 Family history of malignant neoplasm of bladder

== ENCOUNTER → 2022-07-24 | Outpatient (CLI) | payer MEDICARE, BC, OTHER ==
[~2022-07-24] MED LIST changes: -NS 1,000 ML IV ONE
== END ==
LOC: M WHC 12:33
PROVIDERS: ATTEND Physician Assistant
DX: L72.9 Follicular cyst of the skin and subcutaneous tissue, unspecified (principal)

== ENCOUNTER → 2022-12-13 | Outpatient (REF) | payer MEDICARE, OTHER ==
[2022-12-13 12:43] LABS: HEMATOCRIT 46.3 % (42.0-52.0); HEMOGLOBIN 15.6 g/dl (13.5-17.5); MEAN CORPUSCULAR HGB CONC 33.7 g/dl (32.0-36.5); MEAN CORPUSCULAR VOLUME 94.9 fl (80.0-96.0); PLATELET COUNT, AUTOMATED 193 10^3/uL (150-450); RED BLOOD COUNT 4.88 10^6/uL (4.30-6.10); WHITE BLOOD COUNT 5.7 10^3/uL (4.0-10.0)
[2022-12-13 12:50] LABS: ALKALINE PHOSPHATASE 74 U/L (46-116); ALT/SGPT 34 U/L (7.0-40); AST/SGOT 25 U/L (<34); BILIRUBIN,TOTAL 0.9 MG/DL (0.3-1.2); BLOOD UREA NITROGEN 18 MG/DL (9-23); CALCIUM LEVEL 8.7 MG/DL (8.3-10.6); CARBON DIOXIDE LEVEL 26 MMOL/L (20-31); CHLORIDE LEVEL 108 MMOL/L (98-107); CHOLESTEROL LEVEL 207 MG/DL (<200); CHOLESTEROL RISK RATIO 3.98 (<5); CREATININE FOR GFR 0.92 MG/DL (0.70-1.30); GLOMERULAR FILTRATION RATE > 60.0 (>49); GLUCOSE, FASTING 96 MG/DL (74-106); HDL CHOLESTEROL 51.9 MG/DL (>40); LDL CHOLESTEROL 116.1 MG/DL (<100); NON-HDL-C 155.1 MG/DL; POTASSIUM SERUM 4.3 MMOL/L (3.5-5.1); SODIUM LEVEL 142 MMOL/L (136-145); TOTAL PROTEIN 6.5 G/DL (5.7-8.2); TRIGLYCERIDES LEVEL 195 MG/DL (<150); VITAMIN B12 LEVEL 415 PG/ML (211-911)
[2022-12-13 12:51] LABS: FOLATE 22.1 NG/ML (>5.4)
== END ==
LOC: M SFHCADAM 07:15
PROVIDERS: ATTEND Physician Assistant
DX: K21.9 Gastro-esophageal reflux disease without esophagitis (principal); E78.5 Hyperlipidemia, unspecified; Z12.5 Encounter for screening for malignant neoplasm of prostate
CPT/HCPCS: 80053; 80061; 82607; 82746; 85027; G0103

== ENCOUNTER → 2023-02-23 | Outpatient (REF) | payer MEDICARE, BC, OTHER ==
[2023-02-23 14:27] LABS: ALBUMIN 4.1 G/DL (3.2-5.2); ALKALINE PHOSPHATASE 83 U/L (46-116); ALT/SGPT 38 U/L (7.0-40); AST/SGOT 24 U/L (<34); BILIRUBIN,TOTAL 0.8 MG/DL (0.3-1.2); BLOOD UREA NITROGEN 19 MG/DL (9-23); CALCIUM LEVEL 9.1 MG/DL (8.3-10.6); CARBON DIOXIDE LEVEL 31 MMOL/L (20-31); CHLORIDE LEVEL 108 MMOL/L (98-107); CHOLESTEROL LEVEL 145 MG/DL (<200); CHOLESTEROL RISK RATIO 2.71 (<5); CREATININE FOR GFR 1.01 MG/DL (0.70-1.30); GLOMERULAR FILTRATION RATE > 60.0 (>49); GLUCOSE, FASTING 98 MG/DL (74-106); HDL CHOLESTEROL 53.4 MG/DL (>40); LDL CHOLESTEROL 59.2 MG/DL (<100); NON-HDL-C 91.6 MG/DL; POTASSIUM SERUM 4.5 MMOL/L (3.5-5.1); SODIUM LEVEL 143 MMOL/L (136-145); TOTAL PROTEIN 6.6 G/DL (5.7-8.2); TRIGLYCERIDES LEVEL 162 MG/DL (<150)
== END ==
LOC: M SFHCADAM 08:26
PROVIDERS: ATTEND Physician Assistant
DX: E78.5 Hyperlipidemia, unspecified (principal)

== ENCOUNTER 2023-07-13 10:22 | Day surgery (SDC) | payer MEDICARE, BC ==
[~2023-07-13] VITALS: Ht 177.8 cm; Wt 94.6 kg
[~2023-07-13 10:22] MED LIST changes: +ATOR1TAB21 PO; +COLA100C5 PO
[2023-07-13] MEDS: NS 1,000 ML IV ONE (10:39)
[2023-07-13] MEDS ORDERED: propofoL 200 MG/20 ML VIAL As Ordered ONE (11:26)
[2023-07-13] MEDS ORDERED: LIDOCAINE 2% 100MG/5ML SDV (FOR ANES.) As Ordered ONE (11:26)
[2023-07-13 12:28] VITALS: BP 118/64; O2SAT 98
== END 2023-07-13 12:30 | disposition home or self-care (01) ==
LOC: M OPP 10:22
PROVIDERS: ATTEND Internal Medicine Gastroenterology
DX: K22.70 Barrett's esophagus without dysplasia (principal); K21.00 Gastro-esophageal reflux disease with esophagitis, without bleeding; K31.7 Polyp of stomach and duodenum; K44.9 Diaphragmatic hernia without obstruction or gangrene; K29.70 Gastritis, unspecified, without bleeding; Z90.49 Acquired absence of other specified parts of digestive tract; E78.00 Pure hypercholesterolemia, unspecified; Z79.899 Other long term (current) drug therapy

== ENCOUNTER → 2023-08-15 | Outpatient (REF) | payer MEDICARE, BC | LOC: M SFHCADAM 12:13 | PROVIDERS: ATTEND Physician Assistant | DX: R50.9 Fever, unspecified (principal) ==

== ENCOUNTER → 2023-12-26 | Outpatient (REF) | payer MEDICARE, BC ==
[2023-12-26 13:54] LABS: ALKALINE PHOSPHATASE 107 U/L (40-129); ALT/SGPT 37 U/L (7.0-40); AST/SGOT 21 U/L (<34); BASO % 0.6 % (0.0-1.0); BILIRUBIN,TOTAL 0.6 MG/DL (0.3-1.2); BLOOD UREA NITROGEN 16 MG/DL (9-23); CALCIUM LEVEL 9.5 MG/DL (8.3-10.6); CARBON DIOXIDE LEVEL 27 MMOL/L (20-31); CHLORIDE LEVEL 107 MMOL/L (98-107); CHOLESTEROL LEVEL 155 MG/DL (<200); CHOLESTEROL RISK RATIO 2.56 (<5); CREATININE FOR GFR 0.88 MG/DL (0.70-1.30); EOS # 0.2 10^3/uL (0.0-0.5); EOS % 2.7 % (0.0-3.0); GLOMERULAR FILTRATION RATE > 60.0 (>49); GLUCOSE, FASTING 100 MG/DL (74-106); HDL CHOLESTEROL 60.4 MG/DL (>40); HEMATOCRIT 45.6 % (42.0-52.0); HEMOGLOBIN 15.2 g/dl (13.5-17.5); LDL CHOLESTEROL 74.2 MG/DL (<100); LYMPH # 1.9 10^3/uL (1.5-5.0); LYMPH % 28.7 % (24.0-44.0); MEAN CORPUSCULAR HEMOGLOBIN 32.2 pg (27.0-33.0); MEAN CORPUSCULAR HGB CONC 33.3 g/dl (32.0-36.5); MEAN CORPUSCULAR VOLUME 96.6 fl (80.0-96.0); MONO # 0.7 10^3/uL (0.0-0.8); MONO % 9.6 % (2.0-8.0); NEUTROPHILS # 3.9 10^3/uL (1.5-8.5); NEUTROPHILS % 57.8 % (36.0-66.0); NON-HDL-C 94.6 MG/DL; PLATELET COUNT, AUTOMATED 187 10^3/uL (150-450); POTASSIUM SERUM 4.3 MMOL/L (3.5-5.1); PSA SCREENING 1.26 NG/ML (< 4.00); RED BLOOD COUNT 4.72 10^6/uL (4.30-6.10); SODIUM LEVEL 139 MMOL/L (136-145); TOTAL PROTEIN 6.8 G/DL (5.7-8.2); TRIGLYCERIDES LEVEL 102 MG/DL (<150); WHITE BLOOD COUNT 6.8 10^3/uL (4.0-10.0)
[2023-12-26 14:33] LABS: HEMOGLOBIN A1c 5.5 % (4.0-6.0)
== END ==
LOC: M SFHCADAM 07:05
PROVIDERS: ATTEND Physician Assistant
DX: Z12.5 Encounter for screening for malignant neoplasm of prostate (principal); E78.5 Hyperlipidemia, unspecified; K22.70 Barrett's esophagus without dysplasia; K21.9 Gastro-esophageal reflux disease without esophagitis; Z13.1 Encounter for screening for diabetes mellitus
CPT/HCPCS: 80053; 80061; 83036; 85025; G0103

== ENCOUNTER → 2024-01-29 | Outpatient (CLI) | payer MEDICARE, BC | LOC: M CARPUL 14:01 | PROVIDERS: ATTEND Physician Assistant | DX: R01.1 Cardiac murmur, unspecified (principal) ==

== ENCOUNTER 2024-11-11 14:26 | Inpatient (IN) | payer MEDICARE, BC ==
[~2024-11-11] VITALS: Ht 175.3 cm; Wt 104.4 kg
[2024-11-11] MEDS ORDERED: BISACODYL 5 MG TAB PO PRN (15:20)
[2024-11-11] MEDS ORDERED: MAALOX 30 ML SUSP *UDC PO PRN (15:20)
[2024-11-11] MEDS ORDERED: MOM 30 ML SUSPENSION UDC PO PRN (15:20)
[2024-11-11] MEDS ORDERED: ONDANSETRON 4MG ORAL DISINTEGRATING TAB PO PRN (15:20)
[2024-11-11] MEDS ORDERED: SIMETHICONE 80MG CHEW TAB PO PRN (15:20)
[2024-11-11] MEDS ORDERED: BISACODYL 10 MG SUPP PR PRN (15:20)
[2024-11-11 19:42] VITALS: BP 155/70; TEMP 97.7; O2SAT 96
[2024-11-11 20:00] VITALS: O2SAT 96
[2024-11-11] MEDS: ACETAMINOPHEN 500 MG TAB PO SCH (20:00)
[2024-11-11] MEDS: OMEPRAZOLE 20MG CAP PO SCH (21:00)
[2024-11-11] MEDS: ENOXAPARIN 40 MG/0.4 ML SYRINGE (J1650 PER 10MG) SC SCH (21:00)
[2024-11-11] MEDS: SENNA 8.6 MG TAB PO SCH (21:00)
[2024-11-11] MEDS: ATORVASTATIN 20 MG TAB PO SCH (21:00)
[2024-11-11] MEDS: GABAPENTIN 100 MG CAP PO SCH (21:00)
[2024-11-11] MEDS: DOCUSATE SODIUM 100 MG CAPSULE PO SCH (21:00)
[2024-11-11] MEDS ORDERED: METH-1164 PO (22:38)
[2024-11-11] MEDS ORDERED: OXYC-517 PO (22:42)
[2024-11-11] MEDS ORDERED: ACET-907 PO (22:46)
[2024-11-11] MEDS ORDERED: GABA-284 PO (22:46)
[2024-11-11] MEDS ORDERED: ENOX40IN3 SC (22:46)
[2024-11-11] MEDS ORDERED: MED REC COMMENT (22:47)
[2024-11-11] MEDS ORDERED: HOME MED LIST COMPLETE! XX SCH (22:50)
[2024-11-12 04:00] VITALS: BP 140/72; TEMP 98.6; O2SAT 97
[2024-11-12] MEDS: CETIRIZINE 10 MG TAB PO SCH (07:49)
[2024-11-12] MEDS: MULTIVITAMINS/MINERALS THERAP 1 TAB PO SCH (07:49)
[2024-11-12] MEDS: FLUTICASONE PROPIONATE 0.05% NASAL SPRAY 16 GM NARES SCH (07:50)
[2024-11-12 07:57] LABS: BASO # 0.0 10^3/uL (0.0-0.2); BASO % 0.5 % (0.0-1.0); EOS # 0.2 10^3/uL (0.0-0.5); EOS % 2.1 % (0.0-3.0); LYMPH # 1.9 10^3/uL (1.5-5.0); LYMPH % 22.6 % (24.0-44.0); MONO # 0.8 10^3/uL (0.0-0.8); MONO % 9.2 % (2.0-8.0); NEUTROPHILS # 5.6 10^3/uL (1.5-8.5); NEUTROPHILS % 65.0 % (36.0-66.0); PLATELET COUNT, AUTOMATED 186 10^3/uL (150-450)
[2024-11-12 08:21] LABS: ALT/SGPT 34 U/L (7.0-40); AST/SGOT 40 U/L (<34); CALCIUM LEVEL 8.3 MG/DL (8.3-10.6); CARBON DIOXIDE LEVEL 26 MMOL/L (20-31); CHLORIDE LEVEL 104 MMOL/L (98-107); CREATININE FOR GFR 0.87 MG/DL (0.70-1.30); GLOMERULAR FILTRATION RATE > 90.0 (>42); POTASSIUM SERUM 4.0 MMOL/L (3.5-5.1); SODIUM LEVEL 138 MMOL/L (136-145)
[2024-11-12] MEDS: LIDOCAINE 5% PATCH TD ONE (11:37)
[2024-11-12 12:00] VITALS: BP 124/65; TEMP 98.5; O2SAT 99
[2024-11-12 20:04] VITALS: BP 130/69; TEMP 98; O2SAT 98
[2024-11-13 04:49] VITALS: BP 129/69; TEMP 97.2; O2SAT 94
[2024-11-13] MEDS: LIDOCAINE 5% PATCH TD SCH (07:42)
[2024-11-13 12:06] VITALS: BP 135/61; TEMP 98; O2SAT 94
[2024-11-13 20:00] VITALS: BP 133/64; TEMP 98.2; O2SAT 95
[2024-11-14 04:00] VITALS: BP 132/75; TEMP 98; O2SAT 94
[2024-11-14 08:34] LABS: PLATELET COUNT, AUTOMATED 220 10^3/uL (150-450)
[2024-11-14 13:15] VITALS: BP_SYST 132; BP_SYST 142; BP_DIAS 72; BP_DIAS 77; TEMP 97; TEMP 97.5; O2SAT 95; O2SAT 96
[2024-11-14 20:00] VITALS: BP 121/69; TEMP 98.1; O2SAT 94
[2024-11-15 04:00] VITALS: BP 131/66; TEMP 97.9; O2SAT 93
[2024-11-15 11:56] VITALS: BP 138/70; TEMP 97.4; O2SAT 97
[2024-11-15 20:00] VITALS: BP 120/57; TEMP 97.9; O2SAT 94
[2024-11-16 04:00] VITALS: BP 126/71; TEMP 97.1; O2SAT 95
[2024-11-16 11:51] VITALS: BP 139/69; TEMP 98; O2SAT 93
[2024-11-16 20:00] VITALS: BP 142/75; TEMP 97.9; O2SAT 95
[2024-11-17 04:00] VITALS: BP 111/62; TEMP 97.8; O2SAT 96
[2024-11-17 09:44] VITALS: BP 126/69
[2024-11-17 12:00] VITALS: BP 121/64; TEMP 97.9; O2SAT 100
[2024-11-17 19:14] VITALS: BP 136/63; TEMP 98.3; O2SAT 95
[2024-11-18 04:00] VITALS: BP 130/69; TEMP 97.6; O2SAT 94
[2024-11-18 12:00] VITALS: BP 129/66; TEMP 97.2; O2SAT 96
[2024-11-18 13:10] LABS: KETONE, URINE AUTO RFX NEGATIVE (NEGATIVE); MUCUS, URINE RFX SMALL (NEGATIVE); NITRITE, URINE AUTO RFX NEGATIVE (NEGATIVE); RBC, URINE AUTO RFX 0 /HPF (0-3); SQUAM EPITHELIAL CELL UR AURFX 0 /HPF (0-6); WBC, URINE AUTO RFX 1 /HPF (0-3)
[2024-11-18 13:14] LABS: LEUKOCYTE ESTERASE UR AUTO RFX 1+ (NEGATIVE)
[2024-11-18 15:45] VITALS: BP 138/84; TEMP 97.7; O2SAT 95
[2024-11-18 20:00] VITALS: BP 135/64; TEMP 97.9; O2SAT 96
[2024-11-19 04:10] VITALS: BP 136/70; TEMP 97.4; O2SAT 95
[2024-11-19 11:36] VITALS: BP 120/61; TEMP 97.9; O2SAT 96
[2024-11-19] MEDS ORDERED: FLUTISP NARES (12:11)
[2024-11-19] MEDS ORDERED: LIDO5TD TD (12:11)
[2024-11-19] MEDS ORDERED: METH-1164 PO (12:11)
[2024-11-19] MEDS ORDERED: GABA-1171 PO (12:11)
[2024-11-19] MEDS ORDERED: OMEP-173 PO (12:11)
[2024-11-19] MEDS ORDERED: OXYC-517 PO (12:11)
[2024-11-19] MEDS ORDERED: ACET-683 PO (12:11)
[2024-11-19] MEDS ORDERED: ASPI81TA26 PO (12:13)
[2024-11-19 20:00] VITALS: BP 137/63; TEMP 97.2; O2SAT 96
[2024-11-20 04:00] VITALS: BP 131/68; TEMP 97.5; O2SAT 100
[2024-11-20 12:06] VITALS: BP 130/70; TEMP 97.8; O2SAT 96
== END 2024-11-20 13:05 | disposition home health service (06) | DRG 561 ==
LOC: M PM&R 19:11
PROVIDERS: ADMIT Physical Medicine & Rehabilitation; ATTEND Physical Medicine & Rehabilitation
DX: S42.115D Nondisplaced fracture of body of scapula, left shoulder, subsequent encounter for fracture with routine healing (principal); S22.42XD Multiple fractures of ribs, left side, subsequent encounter for fracture with routine healing; S82.002D Unspecified fracture of left patella, subsequent encounter for closed fracture with routine healing; S82.402D Unspecified fracture of shaft of left fibula, subsequent encounter for closed fracture with routine healing; S27.1XXD Traumatic hemothorax, subsequent encounter; E78.5 Hyperlipidemia, unspecified; K21.9 Gastro-esophageal reflux disease without esophagitis; M54.50 Low back pain, unspecified; G89.29 Other chronic pain; J30.2 Other seasonal allergic rhinitis; K59.00 Constipation, unspecified; M25.512 Pain in left shoulder; G47.00 Insomnia, unspecified; R30.0 Dysuria; R35.0 Frequency of micturition; G89.11 Acute pain due to trauma; Z74.1 Need for assistance with personal care; Z74.09 Other reduced mobility; Z88.0 Allergy status to penicillin; Z79.899 Other long term (current) drug therapy

== ENCOUNTER → 2024-12-04 | Outpatient (REF) | payer MEDICARE, BC ==
[~2024-12-04] MED LIST changes: +ACET-907 PO; +ASPI81TA26 PO; +ENOX40IN3 SC; +FLUTISP NARES; +GABA-1171 PO; +GABA-284 PO; +LIDO5TD TD; +MED REC COMMENT; +OXYC-517 PO
[2024-12-04 14:39] LABS: PLATELET COUNT, AUTOMATED 263 10^3/uL (150-450)
[2024-12-04 14:43] LABS: FREE T4 1.02 NG/DL (0.89-1.76); VITAMIN B12 LEVEL 451 PG/ML (211-911)
[2024-12-04 14:44] LABS: ALT/SGPT 28 U/L (7.0-40); AST/SGOT 20 U/L (<34); CALCIUM LEVEL 9.5 MG/DL (8.3-10.6); CARBON DIOXIDE LEVEL 28 MMOL/L (20-31); CHLORIDE LEVEL 106 MMOL/L (98-107); CHOLESTEROL LEVEL 139 MG/DL (<200); CHOLESTEROL RISK RATIO 2.55 (<5); CREATININE FOR GFR 0.87 MG/DL (0.70-1.30); ESTIMATED AVERAGE GLUCOSE 108.0 MG/DL (60-110); GLOMERULAR FILTRATION RATE > 90.0 (>42); LDL CHOLESTEROL 42.6 MG/DL (<100); NON-HDL-C 84.6 MG/DL; POTASSIUM SERUM 4.5 MMOL/L (3.5-5.1); SODIUM LEVEL 143 MMOL/L (136-145); TRIGLYCERIDES LEVEL 210 MG/DL (<150)
== END ==
LOC: M SFHCADAM 10:50
PROVIDERS: ATTEND Physician Assistant
DX: Z00.00 Encounter for general adult medical examination without abnormal findings (principal); K22.70 Barrett's esophagus without dysplasia; E78.5 Hyperlipidemia, unspecified; R01.1 Cardiac murmur, unspecified; Z79.899 Other long term (current) drug therapy

== ENCOUNTER → 2025-01-01 | Outpatient (REF) | payer MEDICARE, BC ==
[2025-01-01 15:08] LABS: PSA SCREENING 1.04 NG/ML (< 4.00)
[2025-01-01 15:12] LABS: TOTAL 25(OH) VITAMIN D 29.2 NG/ML (20.0-100.0)
== END ==
LOC: M SFHCADAM 08:23
PROVIDERS: ATTEND Physician Assistant
DX: Z12.5 Encounter for screening for malignant neoplasm of prostate (principal); K22.70 Barrett's esophagus without dysplasia; R74.8 Abnormal levels of other serum enzymes; Z79.899 Other long term (current) drug therapy
CPT/HCPCS: 82306; G0103